=== PATIENT | male | born 1940 | race Caucasian/White ===

== ENCOUNTER 2017-06-24 11:11 | Inpatient (IN) ==
--- NOTE | 2017-06-24 12:06 | Emergency Department Note ---
Arrival - Arrival Chief Complaint: Upper Respiratory Stated Complaint: pne temp sob ED Nursing Triage Note: C/o productive cough, fever, runny nose-onset yesterday. Patient had one episode of vomiting yesterday morning. Reports highest temp 102. Also c/o blood tinged sputum yesterday. Denies symptoms at this time, states he is feeling fine now, instructed by Dr. Truong to come to the ER for evaluation of possible bronchitis vs pneumonia. Mode of Arrival: Ambulatory Time Seen by Provider: 06/24/17 11:38 - History of Present Illness HPI Narrative: 77-year-old white male, present, both gives history. Complains of cough for 1 month, runny nose and blood-tinged sputum that started on yesterday. Associated with fever 2 days ago at 102.2, vomiting. states that the patient ate Portuguese food on Wednesday and developed reflux, and vomiting the following day. Denies abdominal pain, diarrhea, shortness of breath, wheezing, weakness. Both are very concerned about blood-tinged sputum is patient history of CVA and is managed on Xarelto. Patient was seen by Dr. Tanner, PCP, today for above symptoms. states that patient had chest x-ray and CBC and was told to follow-up here in the emergency department as patient may have a pneumonia and he is anemic and may require "scope". However patient states "I feel perfectly fine." PCP: Dr. Truong PMH: Hypertension, hyperlipidemia, GERD, CVA Medications: Coronary, interested, Lasix, Lipitor, Nexium, Xarelto, Sudha Allergies: Ativan, codeine Allergies/Adverse Reactions: Allergies Allergy/AdvReac Type Severity Reaction Status Date / Time codeine Allergy Verified 02/08/17 07:09 lorazepam [From Ativan] Allergy Verified 02/08/17 07:09 Home Medications: Home Medications Medication Instructions Recorded Confirmed Type Fexofenadine/Pseudoephedrine 1 each PO DAILY 09/27/16 02/08/17 History [Sudha-D 24 Hour Tablet] Omeprazole 20 mg PO BID 09/27/16 02/08/17 History Atorvastatin [Lipitor] 80 mg PO BEDTIME #60 tablet 10/01/16 02/08/17 Rx Furosemide Tab [Lasix Tab] 40 mg PO DAILY 11/12/16 02/08/17 History Carvedilol [Coreg] 12.5 mg PO BID W/MEALS #60 tablet 02/09/17 Rx Sacubitril/Valsartan [Entresto 49 1 each PO BID 02/09/17 02/09/17 History mg-51 mg Tablet] cephALEXin [Keflex] 500 mg PO Q12HR #10 capsule 02/09/17 Rx oxyCODONE/ACETAMINOPHEN 5-325 1 tablet PO Q4H PRN #20 tablet 02/09/17 Rx [Percocet 5-325] Review of System - Review of System Constitutional: Present: as per HPI, fever (102.2 on yesterday) Head/Ears/Nose/Throat: Present: other (Rhinorrhea) Respiratory: Present: as per HPI, cough. Absent: respiratory distress, wheezing Cardiovascular: Absent: chest pain, palpitations Gastrointestinal: Present: nausea, vomiting. Absent: abdominal pain, diarrhea Genitourinary male: Absent: urgency, dysuria, frequency Skin: Absent: rash Medical,Surgical,& Family Hx - Medical History Cardio: History of: Hypertension Neurology: History of: Cerebrovascular Accident No history of: Seizures Genitourinary: History of: Prostate Problems Gastrointestinal: History of: GERD Musculoskeletal: History of: Back/Neck Problems - Surgical History Cardiac Surgeries: Sugical HX of: Cardiac Catheterization Abdominal Surgeries: Patient denies: Appendectomy, Cholecystectomy - Family History Family History: Reports;: Family Heart Disease - Social History Smoking Status: Former smoker Frequency of Alcohol Use: None Type of Drug Use: None Exam Physical Examination: - General General appearance: alert, in no apparent distress - Head Head exam: Present: atraumatic, normocephalic, normal inspection - Eye Eye exam: Present: normal appearance, - ENT ENT exam: Present: normal exam - Neck Neck exam: Present: normal inspection, full ROM. Absent: tenderness, lymphadenopathy - Chest Chest inspection: Present: symmetric chest wall rise - Respiratory Respiratory exam: Present: normal lung sounds bilaterally, dry cough heard on exam - Cardiovascular Cardiovascular exam: Present: regular rate, normal rhythm, normal heart sounds - Abdominal Exam Abdominal exam: Present: soft, normal bowel sounds. Absent: tenderness - Extremities Exam Extremities exam: Present: normal inspection, full ROM, normal capillary refill - Back Exam Back exam: Present: normal inspection. - Neurological Exam Neurological exam: Present: alert, oriented X3, normal gait, - Psychiatric Psychiatric exam: Present: normal affect, normal mood - Skin Skin exam: Present: warm, dry, intact Vital Signs: Vital Signs Temperature 98.4 F 06/24/17 11:14 Pulse Rate 90 06/24/17 13:43 Respiratory Rate 20 06/24/17 13:43 Blood Pressure 143/102 06/24/17 13:43 O2 Sat by Pulse Oximetry 96 06/24/17 13:43 Course - Reevaluation(s) Reevaluation #1: H&H 11.7& 35.6, PT 18.2, PTT 34.9, INR 1.7, large amount of blood in urine. Chest x-ray showed right upper lung density, we will give Rocephin 1 g IV. Patient is stable at present. Ankita, nurse practitioner, with hospitalist group consulted outpatient. Time: 12:45 Results - Labs CBC & BMP: 06/24/17 12:02 Lab Results: I have reviewed the patients labs Labs: Laboratory Tests 06/24/17 06/24/17 12:02 12:02 INR 1.7 PT Patient/Control Mix 18.2 D Circ Anticoag PTT 34.9 Urine Color Yellow Urine Appearance Clear Urine pH 6.0 Ur Specific [place] 1.005 Urine Protein Negative Urine Glucose (UA) Negative Urine Ketones Negative Urine Blood Moderate Urine Nitrate Negative Urine Bilirubin Negative Urine Urobilinogen 2.0 H Urine Leukocytes Trace Urine RBC 2 Urine WBC 3 Ur Squamous Epith Cells Occasional Urine Bacteria Occasional Ur Culture Indicated? Not indicated - Impressions Chest x-ray: Impression: Increased right upper lung density, could indicate pneumonia. - Diagnostic Findings Procedure: Chest x-ray: report reviewed by me Disposition Clinical Impression: Pneumonia, Hematuria Case discussed with: patient, patient's family Disposition: Still a Patient Condition: Stable
[2017-06-24 12:17] LABS: Basophils % 0.2 % (0.0-0.8); Eosinophils # 0.1 10*3/uL (0.0-0.87); Eosinophils % 0.5 % (0.00-10.9); Hematocrit 35.6 VOL% (42.0-52.0); Hemoglobin 11.7 GM/DL (14.0-18.0); Immature Granulocytes % 0.3 %; Immature Granulocytes Absolute 0.03 #; Lymphocytes # 1.8 10*3/uL (1.4-4.0); Lymphocytes % 16.2 % (21.2-54.2); Mean Corpuscular HGB Conc 32.9 GM/DL (32-36); Mean Corpuscular Hemoglobin 29 PG (27-34); Mean Platelet Volume 10.2 FL (9.6-12.0); Monocytes # 0.9 10*3/uL (0.11-0.8); Monocytes % 8.4 % (1.7-12.7); Neutrophils # 8.2 10*3/uL (1.4-7.4); Neutrophils % 74.4 % (38.7-73.9); Platelet Count 195 T/CUMM (130-400); Red Cell Distribution Width 17.2 % (9.3-17.3)
[2017-06-24 12:21] LABS: Apearance,Urine CLEAR (Clear); Bacteria,Urine Occasional /HPF (Few); Bilirubin,Urine Negative (Negative); Blood, Urine Moderate mg/dL (Negative); Glucose,Urine (UA) Negative (Negative); Ketones,Urine Negative (Negative); Nitrite,Urine Negative (Negative); Protein,Urine Negative; RBC,Urine 2 /HPF (0-4); Squamous Epithelial Cell,Urine Occasional /HPF (0-10); Urine Color Yellow (Yellow); Urine Specific Gravity 1.005 (1.001-1.035); WBC,Urine 3 /HPF (0-6)
--- NOTE | 2017-06-24 12:23 | XRay Report ---
XR chest 2V Indication: Cough, hemoptysis Comparison: 09 February 2017 Findings: The heart and mediastinum are stable in size and configuration. The pulmonary vascularity is normal in caliber. Pacemaker device is unchanged in position. There is increased right upper lung density not present on previous study. No other pulmonary infiltrates, effusions, pneumothorax or other abnormality is demonstrated. Impression: Increased right upper lung density, could indicate pneumonia. PROCEDURE INTERPRETED AT [facility] DEPARTMENT OF RADIOLOGY Final Report Signed by: Dr. Inocente Ramirez
[2017-06-24 12:29] LABS: INR 1.7; PT Patient Result 18.2 SECS; Partial Thromboplastin Time 34.9 SECS (0-40)
[2017-06-24] MEDS ORDERED: cefTRIAXone 1,000 MG in SODIUM CHLORIDE 0.9% 100 ML IV STA (14:03)
[2017-06-24] MEDS ORDERED: cefTRIAXone 1,000 MG VIAL ONE (14:05)
[2017-06-24] MEDS ORDERED: ALBUTEROL/IPRATROPIUM 3 ML NEB RESP TX PRN (15:09)
[2017-06-24] MEDS ORDERED: ONDANSETRON 4 MG/2 ML VIAL IV PRN (15:12)
[2017-06-24] MEDS ORDERED: DOCUSATE SODIUM 100 MG CAPSULE PO PRN (15:12)
[2017-06-24] MEDS ORDERED: ACETAMINOPHEN 325 MG TABLET PO PRN (15:12)
--- NOTE | 2017-06-24 15:36 | Hospitalist History & Physical ---
<Marycruz Cooney - Last Filed: 06/24/17 15:21> Assessment and Plan - Time spent with patient Time spent with patient: Greater than 30 minutes (1) Pneumonia Status: Acute Assessment and plan: 06/24/17 admit to hospital services. Will start antibiotics. Will consult Pulmonary. Will repeat a.m. labs. Will discuss with Dr Delgado for further recommendations. Current Visit: Yes (2) Hemoptysis Status: Acute Assessment and plan: 06/24/17 Reported 3-4 episodes yesterday of coughing up "bloody" thick sputum and another couple of episodes today. Patient is on xarelto s/p stroke in Aug 2016. Will repeat labs in a.m. will continue to monitor. will order sputum culture. Current Visit: Yes History of Present Illness Chief complaint: pneumonia, coughing up blood tinged sputum History of present illness: Mr. Gonzalez is a very pleasant 77 year old white male presented to [facility] non-urgent from Dr Truong's office for further evaluation of coughing up blood tinged sputum for past 2 days, chills, and fever. Patient is on Xarelto since stroke in August. PMHx: CVA (Aug 2016), Hypertension, GERD, Prostate issues. Patient verbalized elevated temperature of 102.2 yesterday with chil ls and vomited x1 without any bright or dark blood noted. Also, h e coughed up 3-4 times, thick sputum with blood in it. Patient reports this morning no fever, chills or vomiting but coughed up a couple of times thick blood tinged sputum. Denies shortness of breath or chest pain. Denies exertional shortness of breath or chest pain. Denies dark or bloody stools. Reports clear urine without any problems. PCP: Dr Truong. Electric Sign Assembler Dr Powell. Ambulates without assistance or difficulty. Lives at home with . After discussion with Janes Norwood in non-urgent ER and Dr Delgado with Hospitalist Services, it was agreed to admit patient for further evaluation and management. Home medications will be reviewed and reconciliation to follow. Home Medications Medication Instructions Recorded Confirmed Type Fexofenadine/Pseudoephedrine 1 each PO DAILY 09/27/16 02/08/17 History [Sudha-D 24 Hour Tablet] Omeprazole 20 mg PO BID 09/27/16 06/24/17 History Atorvastatin [Lipitor] 80 mg PO BEDTIME #60 tablet 10/01/16 02/08/17 Rx Furosemide Tab [Lasix Tab] 40 mg PO DAILY 11/12/16 06/24/17 History Carvedilol [Coreg] 12.5 mg PO BID W/MEALS #60 tablet 02/09/17 06/24/17 Rx Sacubitril/Valsartan [Entresto 49 1 each PO BID 02/09/17 06/24/17 History mg-51 mg Tablet] Rivaroxaban [Xarelto] 20 mg PO DAILY 06/24/17 06/24/17 History Allergies Allergy/AdvReac Type Severity Reaction Status Date / Time codeine Allergy Verified 02/08/17 07:09 lorazepam [From Ativan] Allergy Verified 02/08/17 07:09 Medical,Surgical,& Family Hx - Medical History Cardio: History of: Hypertension Neurology: History of: Cerebrovascular Accident (August 2016) No history of: Seizures Genitourinary: History of: Prostate Problems Gastrointestinal: History of: GERD Musculoskeletal: History of: Back/Neck Problems - Surgical History Cardiac Surgeries: Sugical HX of: Cardiac Catheterization Abdominal Surgeries: Patient denies: Appendectomy, Cholecystectomy - Family History Family History: Reports;: Family Heart Disease - Social History Smoking Status: Former smoker Frequency of Alcohol Use: None Type of Drug Use: None Marital Status: Lives With:: Spouse Functional capacity: independent ambulation Review of systems: ROS completed and pertinent positives and negatives in HPI. Exam - Constitutional Vitals: Period Temp Pulse Resp BP Sys/Mitchell Pulse Ox Last 24 Hr 98.4 F 77-90 18-20 143-156/96-102 96-97 General appearance: normal weight - Head Head exam: Present: normal inspection - Eye Eye exam: Present: EOMI Pupils: Present: PAVAN - Neck Neck exam: Present: normal inspection. Absent: thyromegaly - Respiratory Respiratory exam: Present: clear to auscultation bilaterally, other. Absent: wheezes - Cardiovascular Cardiovascular exam: Present: regular rate and rhythm (has defibrillator) - GI/Abdominal GI/Abdominal exam: Present: normal bowel sounds, soft. Absent: tenderness - Extremities Exam Extremities exam: Present: normal inspection, full ROM. Absent: edema - Neurological Exam Neurological exam: Present: alert, oriented X3, CN II-XII intact - Psychiatric Psychiatric exam: Present: normal affect, normal mood - Skin Skin exam: Present: normal color, warm, dry. Absent: rash Results - Labs CBC & BMP: 06/24/17 12:02 Lab Results: I have reviewed the past 24 hour labs - Diagnostic Findings Procedure: Chest x-ray: report reviewed by me (increased right upper lung density, could indicate pneumonia) <Carolyn Delgado - Last Filed: 06/24/17 16:34> History of Present Illness History of present illness: Patient seen and examined independently of GROUP CARE WORKER Cooney, agree with history, assessment and plan as documented. Patient with possible RUL pna on cxr. His reports increased cough with blood tinged sputum. Patient reports that he feels fine. There was concern for hemoptysis given that he is on xarelto, this does not seem to be the case. Pulmonary has been consulted. Will treat pneumonia with rocephin and azithromycin. Possible discharge tomorrow. Exam - Constitutional Vitals: Period Temp Pulse Resp BP Sys/Mitchell Pulse Ox Last 24 Hr 97.4 F-98.4 F 77-90 18-20 143-156/84-102 96-97 Results - Labs CBC & BMP: 06/24/17 12:02 06/24/17 12:02
[2017-06-24 16:09] LABS: Albumin 3.7 G/DL (3.4-5.0); Bilirubin,Total 1.4 MG/DL (0.2-1.0); Calcium 9.1 MG/DL (8.5-10.1); Osmolality,Calculated 278.4 MOS/KG (273-304); Potassium 3.6 MMOL/L (3.5-5.1)
[2017-06-24] MEDS ORDERED: ALUMINUM/MAGNES/SIMETH MAX STR 30 ML UDCUP PO PRN (16:37)
[2017-06-24] MEDS ORDERED: CALCIUM CARBONATE CHEW 500 MG TABLET PO PRN (16:37)
[2017-06-24] MEDS: cefTRIAXone 1,000 MG in SODIUM CHLORIDE 0.9% 100 ML IV SCH (16:42)
[2017-06-24] MEDS ORDERED: AZITHROMYCIN INJ 500 MG in SODIUM CHLORIDE 0.9% 250 ML IV SCH (17:00)
--- NOTE | 2017-06-24 17:34 | Pulmonology Consult Note ---
Assessment and Plan (1) Hypertension Status: Chronic Assessment and plan: The patient has a history of hypertension but is stable at present. Current Visit: No (2) Cardiomyopathy Status: Acute Assessment and plan: The patient has a cardiomyopathy and has a defibrillator in place. He does not look like he is in heart failure now. Current Visit: No (3) Pneumonia Status: Acute Assessment and plan: The patient does have a right upper lobe infiltrate. He will continue with antibiotics. Current Visit: Yes (4) Hemoptysis Status: Acute Assessment and plan: The hemoptysis is minor and he does have a right upper lobe infiltrate. If this does not clear he will need a bronchoscope. At present he appears stable. Current Visit: Yes History of Present Illness Chief complaint: Hemoptysis History of present illness: Mr. Gonzalez is a 77 year old white male that is followed by Dr. Truong has a history of having a previous CVA. He also has a cardiomyopathy and has a defibrillator in place. This is a nonischemic cardiomyopathy. He does have a history of hypertension. He has been doing reasonably well to the last couple days. He had some chills with nausea and vomited one time yesterday. Then he had a fever. He felt a little better and last night he is feeling better. He came in today to the office is and was found to have a right upper lobe infiltrate. He was admitted for possible pneumonia. He has had some blood- tinged sputum for the past 2 days. He is not complaining of shortness of breath or chest pain. He has not had any further chills. Overall he is feeling reasonably well. He does take anticoagulation. He is a former smoker. Home Medications Medication Instructions Recorded Confirmed Type Fexofenadine/Pseudoephedrine 1 tablet PO DAILY 09/27/16 06/24/17 History [Sudha-D 24 Hour Tablet] Omeprazole 20 mg PO BID 09/27/16 06/24/17 History Atorvastatin [Lipitor] 80 mg PO BEDTIME #60 tablet 10/01/16 06/24/17 Rx Furosemide Tab [Lasix Tab] 80 mg PO DAILY 11/12/16 06/24/17 History Carvedilol [Coreg] 12.5 mg PO BID W/MEALS #60 tablet 02/09/17 06/24/17 Rx Sacubitril/Valsartan [Entresto 49 1 each PO BID 02/09/17 06/24/17 History mg-51 mg Tablet] Rivaroxaban [Xarelto] 20 mg PO DAILY 06/24/17 06/24/17 History Allergies Allergy/AdvReac Type Severity Reaction Status Date / Time codeine Allergy Verified 02/08/17 07:09 lorazepam [From Ativan] Allergy Verified 02/08/17 07:09 - Constitutional Constitutional: Present: chills, fever(s). Absent: fatigue, weight gain, weight loss - EENT Eyes: Absent: loss of vision Ears: Absent: decreased hearing Nose, mouth and throat: Absent: dysphagia, headache(s), sinus pressure - Cardiovascular Cardiovascular: Absent: chest pain at rest, chest pain with activity, dyspnea, dyspnea on exertion, edema - Respiratory Respiratory: Present: cough, hemoptysis. Absent: wheezing, pain on inspiration - Gastrointestinal Gastrointestinal: Present: nausea, vomiting. Absent: abdominal pain, change in bowel habits, dysphagia - Genitourinary Genitourinary: Absent: difficulty urinating, dysuria, hematuria, urinary frequency - Musculoskeletal Musculoskeletal: Absent: arthralgias - Neurological Neurological: Present: abnormal speech. Absent: focal weakness Exam (Pulmonay) H&P - Constitutional Vitals: Period Temp Pulse Resp BP Sys/Mitchell Pulse Ox Last 24 Hr 97.4 F-98.4 F 77-90 18-20 143-156/84-102 96-97 General appearance: normal weight, no acute distress (He certainly looks comfortable at rest.) - Head Head exam: Present: normal inspection, normocephalic - Eye Eye exam: Present: EOMI. Absent: scleral icterus Pupils: Present: PAVAN - ENT ENT exam: Present: normal exam - Neck Neck exam: Present: normal inspection. Absent: lymphadenopathy, thyromegaly - Respiratory Respiratory exam: Present: clear to auscultation bilaterally. Absent: rales - Cardiovascular Cardiovascular exam: Present: regular rate and rhythm. Absent: gallop, systolic murmur - GI/Abdominal GI/Abdominal exam: Present: normal bowel sounds, soft. Absent: organomegaly, tenderness - Extremities Exam Extremities exam: Absent: calf tenderness, edema - Neurological Exam Neurological exam: Present: alert, oriented X3, CN II-XII intact, other (He does have a little trouble with his speech.) - Psychiatric Psychiatric exam: Present: normal affect, normal mood. Absent: anxious - Skin Skin exam: Present: warm, dry Medical,Surgical,& Family Hx - Medical History Cardio: History of: Hypertension Psychological: No history of: Anxiety Disorders, ADHD, Behavior Problems, Bipolar Disorder, Depression, Previous Suicide Attempt, Psychiatric/Substance Abuse Tx, Schizophrenia, Violent Behavior, Psychiatric Problems Neurology: History of: Cerebrovascular Accident (August 2016) No history of: Seizures Genitourinary: History of: Prostate Problems Gastrointestinal: History of: GERD Musculoskeletal: History of: Back/Neck Problems - Surgical History Cardiac Surgeries: Sugical HX of: Cardiac Catheterization Abdominal Surgeries: Patient denies: Appendectomy, Cholecystectomy - Family History Family History: Reports;: Family Heart Disease - Social History Smoking Status: Former smoker Frequency of Alcohol Use: None Type of Drug Use: None Results - Labs CBC & BMP: 06/24/17 12:02 06/24/17 12:02 - Diagnostic Findings Procedure: Chest x-ray: image reviewed by me, report reviewed by me (Chest x- ray shows cardiomegaly. There is a mild right upper lobe infiltrate that is new. There is no signs of heart failure.)
[2017-06-24] MEDS: PANTOPRAZOLE 40 MG TABLET PO SCH (17:43)
[2017-06-24] MEDS: SACUBITRIL/VALSARTAN 49-51 MG TABLET PO SCH (17:44)
[2017-06-24] MEDS: CARVEDILOL 12.5 MG TABLET PO SCH (18:07)
[2017-06-24] MEDS ORDERED: SACUBITRIL/VALSARTAN 49-51 MG TABLET PO SCH (21:00)
[2017-06-24] MEDS ORDERED: ATORVASTATIN 40 MG TABLET PO SCH (21:00)
[2017-06-25 05:05] LABS: Basophils % 0.2 % (0.0-0.8); Eosinophils # 0.1 10*3/uL (0.0-0.87); Hematocrit 30.6 VOL% (42.0-52.0); Hemoglobin 10.3 GM/DL (14.0-18.0); Immature Granulocytes % 0.5 %; Immature Granulocytes Absolute 0.04 #; Lymphocytes # 1.9 10*3/uL (1.4-4.0); Lymphocytes % 22.5 % (21.2-54.2); Mean Corpuscular HGB Conc 33.7 GM/DL (32-36); Mean Corpuscular Hemoglobin 29 PG (27-34); Mean Corpuscular Volume 87.2 FL (87-102); Mean Platelet Volume 10.6 FL (9.6-12.0); Monocytes % 12.2 % (1.7-12.7); Neutrophils # 5.2 10*3/uL (1.4-7.4); Neutrophils % 63.6 % (38.7-73.9); Platelet Count 177 T/CUMM (130-400); Red Blood Count 3.51 MC/CUMM (3.8-5.5); Red Cell Distribution Width 17.2 % (9.3-17.3); White Blood Count 8.2 T/CUMM (4-12)
[2017-06-25 05:42] LABS: Calcium 8.5 MG/DL (8.5-10.1); Magnesium 2.1 MG/DL (1.8-2.4); Osmolality,Calculated 283.1 MOS/KG (273-304); Potassium 3.5 MMOL/L (3.5-5.1)
[2017-06-25] MEDS: CARVEDILOL 12.5 MG TABLET PO SCH (08:05)
[2017-06-25] MEDS: PANTOPRAZOLE 40 MG TABLET PO SCH (08:06)
[2017-06-25] MEDS: SACUBITRIL/VALSARTAN 49-51 MG TABLET PO SCH (08:06)
[2017-06-25] MEDS: PSEUDOEPHEDRINE 30 MG TABLET PO SCH ×2 (08:09→14:14)
[2017-06-25] MEDS ORDERED: cefTRIAXone 1,000 MG in SODIUM CHLORIDE 0.9% 100 ML IV ONE (09:00)
[2017-06-25] MEDS ORDERED: CARVEDILOL 25 MG TABLET PO SCH (09:00)
[2017-06-25] MEDS ORDERED: FUROSEMIDE 40 MG TABLET PO SCH (09:00)
[2017-06-25] MEDS ORDERED: RIVAROXABAN 20 MG TABLET PO SCH (09:00)
[2017-06-25] MEDS ORDERED: PANTOPRAZOLE 40 MG TABLET PO SCH (09:00)
[2017-06-25] MEDS ORDERED: CARVEDILOL 12.5 MG TABLET PO ONE (09:00)
[2017-06-25] MEDS ORDERED: FEXOFENADINE 180 MG TABLET PO SCH (09:00)
--- NOTE | 2017-06-25 09:01 | Pulmonology Progress Note ---
Pulmonary - PN: Subj Interval history: The patient is a 77-year-old white man that has a history of a cardiomyopathy with a defibrillator in place. He has also had a previous CVA and is on Xarelto. He came in with some blood-tinged sputum and has a right upper lobe infiltrate. He had only 1 fever and chill and is better now. His cough is almost clear now. He is tolerating antibiotics well. He is not short of breath and not having any chest pain. Overall he feels better. Exam (Progress Note) - Constitutional Vitals: Period Temp Pulse Resp BP Sys/Mitchell Pulse Ox Last 24 Hr 97.4 F-99.1 F 66-90 16-20 118-156/68-102 93-97 Exam: General appearance: normal weight, no acute distress (He certainly looks comfortable at rest. He is in no distress.) - Head Head exam: Present: normal inspection, normocephalic - Eye Eye exam: Present: EOMI. Absent: scleral icterus Pupils: Present: PAVAN - ENT ENT exam: Present: normal exam - Neck Neck exam: Present: normal inspection. Absent: lymphadenopathy, thyromegaly - Respiratory Respiratory exam: Present: clear to auscultation bilaterally. He is moving air well without any signs of consolidation. Absent: rales - Cardiovascular Cardiovascular exam: Present: regular rate and rhythm. Absent: gallop, systolic murmur - GI/Abdominal GI/Abdominal exam: Present: normal bowel sounds, soft. Absent: organomegaly, tenderness - Extremities Exam Extremities exam: Absent: calf tenderness, edema - Neurological Exam Neurological exam: Present: alert, oriented X3, CN II-XII intact, other (He does have a little trouble with his speech.) - Psychiatric Psychiatric exam: Present: normal affect, normal mood. Absent: anxious - Skin Skin exam: Present: warm, dry Results - Labs CBC & BMP: 06/25/17 04:25 06/25/17 04:25 Assessment and Plan (1) Hypertension Status: Chronic Assessment and plan: The patient has a history of hypertension but is stable at present. Current Visit: No (2) Cardiomyopathy Status: Acute Assessment and plan: The patient has a cardiomyopathy and has a defibrillator in place. He does not look like he is in heart failure now. Vital signs are stable. Current Visit: No (3) Pneumonia Status: Acute Assessment and plan: The patient does have a right upper lobe infiltrate. He will continue with antibiotics. He can get his IV antibiotics today and then go home on oral antibiotics. We can check a chest x-ray in the office next week. He will hold Xarelto for a day or 2 until the hemoptysis clears. Current Visit: Yes (4) Hemoptysis Status: Acute Assessment and plan: The hemoptysis is minor and he does have a right upper lobe infiltrate. He can hold her Xarelto for a day or 2. He is already better and will follow up in the clinic. Current Visit: Yes Specialty Discharge - Follow Up or Referrals Follow up with: Jose Norwood MD [Physician] - (follow up either Wed or Wednesday of next week)
--- NOTE | 2017-06-25 09:40 | Discharge Summary ---
<Yrn Magallon - Last Filed: 06/25/17 09:33> Hospital Course - Hospital Course Hospital Course: This is a 77-year-old male that presented to the [facility]-Urgent[facility] at [facility] on the afternoon of June 24, 2017 for the evaluation of upper respiratory infection. The patient has a very long and complex medical history significant for hypertension, cerebrovascular accident, benign prostatic hypertrophy, gastroesophageal reflux disease, remote nicotine use, and chronic neck and back pain. The patient has a surgical history significant for cardiac catheterization. The patient reports the onset of the above symptoms 1 month prior to presentation. The patient reported that the symptoms initially started with excessive nasal drainage however, the patient was noted to develop some blood-tinged sputum on yesterday. In addition, his reported that the patient was also febrile 2 days prior to presentation with a temperature noted at 102.2. The reports that they ate [place] food on Wednesday and the patient developed reflux and started to vomit on the following day. They voiced concerns regarding the blood-tinged sputum because the patient is currently on Xarelto for coagulation. The patient and his presented to his primary care physician Dr. Cardona this morning for the above complaint. They report that the patient was evaluated and told to present to the ED for further evaluation. The patient was assessed at the time of arrival; labs were obtained which were essentially unremarkable. Chest x-ray reported increased right upper lobe density which could possibly indicate pneumonia. The patient was subsequently admitted to the hospitalist service for continuation of care. A pulmonary consultation was requested to evaluate and assist during the clinical encounter. [facility] antibiotic coverage was initiated and the patient's home medications were resumed. The patient's condition has improved. He has reached maximal benefit of inpatient stay. He has not experienced any significant overnight events. Today, we feel that the patient is indeed appropriate for discharge to follow-up with his primary care physician Dr. Cardona as indicated. He will see Dr. Norwood for a repeat CXR next week. In addition, has been instructed to start Levaquin 750 mg by mouth for the next 3 days. He has been instructed to stop his xarelto until 06/27/17. Specialty Discharge - Follow Up or Referrals Follow up with: Jose Norwood MD [Physician] - 06/28/17 10:30 am () Discharge Plan - Discharge Data Disposition: Disch To Home/Self Care - Discharge Medications New Carvedilol [Coreg] 25 mg PO BID tablet Levofloxacin Tab [Levaquin Tab] 750 mg PO DAILY #3 tablet Continue Omeprazole 20 mg PO BID Fexofenadine/Pseudoephedrine [Sudha-D 24 Hour Tablet] 1 tablet PO DAILY Atorvastatin [Lipitor] 80 mg PO BEDTIME #60 tablet Furosemide Tab [Lasix Tab] 80 mg PO DAILY Sacubitril/Valsartan [Entresto 49 mg-51 mg Tablet] 1 each PO BID Rivaroxaban [Xarelto] 20 mg PO DAILY Carvedilol [Coreg] 25 mg PO BID - Follow Up or Referral Follow Up: Jose Norwood MD [Physician] - 06/28/17 10:30 am () - Forms/Instructions Instructions: Levofloxacin (By mouth), Acute Hemoptysis (DC), Pneumonia (DC) Exam - Constitutional Vitals: Period Temp Pulse Resp BP Sys/Mitchell Pulse Ox Last 24 Hr 97.4 F-99.1 F 66-90 16-20 118-156/68-102 93-97 Discharge Results Procedures and tests throughout hospitalization: Pending Orders 06/24/17 14:17 Blood Culture Stat 06/24/17 20:54 Sputum Culture and Gram Stain Routine Labs on day of discharge: Labs from last 24 hours 06/25/17 06/25/17 06/25/17 04:25 04:25 04:25 WBC 8.2 RBC 3.51 L Hgb 10.3 L Hct 30.6 L MCV 87.2 MCH 29 MCHC 33.7 RDW 17.2 Plt Count 177 MPV 10.6 Neut % (Auto) 63.6 Lymph % (Auto) 22.5 [place] % (Auto) 12.2 Eos % (Auto) 1.0 Baso % (Auto) 0.2 Neut # (Auto) 5.2 Lymph # (Auto) 1.9 [place] # (Auto) 1.0 H Eos # (Auto) 0.1 Baso # (Auto) 0.0 Immature Gran % 0.5 Nucleated RBC % 0.0 Immature Gran # 0.04 Nucleated RBCs # 0.00 Immature Plt Fraction 0.0 INR PT Patient/Control Mix Circ Anticoag PTT Sodium 142 Potassium 3.5 Chloride 109 H Carbon Dioxide 25 Anion Gap 11.5 BUN 14 Creatinine 0.60 L GFR Calculation 111 BUN/Creatinine Ratio 23.00 H Glucose 99 Hemoglobin A1c 6.1 Calculated Osmolality 283.1 Calcium 8.5 Magnesium 2.1 Total Bilirubin AST ALT Alkaline Phosphatase Total Protein Albumin Globulin Albumin/Globulin Ratio Urine Color Urine Appearance Urine pH Ur Specific Henderson Urine Protein Urine Glucose (UA) Urine Ketones Urine Blood Urine Nitrate Urine Bilirubin Urine Urobilinogen Urine Leukocytes Urine RBC Urine WBC Ur Squamous Epith Cells Urine Bacteria Ur Culture Indicated? 06/24/17 06/24/17 06/24/17 12:02 12:02 12:02 WBC RBC Hgb Hct MCV MCH MCHC RDW Plt Count MPV Neut % (Auto) Lymph % (Auto) [place] % (Auto) Eos % (Auto) Baso % (Auto) Neut # (Auto) Lymph # (Auto) [place] # (Auto) Eos # (Auto) Baso # (Auto) Immature Gran % Nucleated RBC % Immature Gran # Nucleated RBCs # Immature Plt Fraction INR 1.7 PT Patient/Control Mix 18.2 D Circ Anticoag PTT 34.9 Sodium 140 Potassium 3.6 Chloride 104 Carbon Dioxide 27 Anion Gap 12.6 BUN 14 Creatinine 0.80 GFR Calculation 99 BUN/Creatinine Ratio 17.00 Glucose 79 Hemoglobin A1c Calculated Osmolality 278.4 Calcium 9.1 Magnesium Total Bilirubin 1.40 H AST 23 ALT 30 Alkaline Phosphatase 94 Total Protein 7.0 Albumin 3.7 Globulin 3.3 Albumin/Globulin Ratio 1.1 Urine Color Yellow Urine Appearance Clear Urine pH 6.0 Ur Specific [place] 1.005 Urine Protein Negative Urine Glucose (UA) Negative Urine Ketones Negative Urine Blood Moderate Urine Nitrate Negative Urine Bilirubin Negative Urine Urobilinogen 2.0 H Urine Leukocytes Trace Urine RBC 2 Urine WBC 3 Ur Squamous Epith Cells Occasional Urine Bacteria Occasional Ur Culture Indicated? Not indicated 06/24/17 12:02 WBC 11.0 RBC 4.00 Hgb 11.7 L Hct 35.6 L MCV 89.0 MCH 29 MCHC 32.9 RDW 17.2 Plt Count 195 MPV 10.2 Neut % (Auto) 74.4 H Lymph % (Auto) 16.2 L [place] % (Auto) 8.4 Eos % (Auto) 0.5 Baso % (Auto) 0.2 Neut # (Auto) 8.2 H Lymph # (Auto) 1.8 [place] # (Auto) 0.9 H Eos # (Auto) 0.1 Baso # (Auto) 0.0 Immature Gran % 0.3 Nucleated RBC % 0.0 Immature Gran # 0.03 Nucleated RBCs # 0.00 Immature Plt Fraction 0.0 L INR PT Patient/Control Mix Circ Anticoag PTT Sodium Potassium Chloride Carbon Dioxide Anion Gap BUN Creatinine GFR Calculation BUN/Creatinine Ratio Glucose Hemoglobin A1c Calculated Osmolality Calcium Magnesium Total Bilirubin AST ALT Alkaline Phosphatase Total Protein Albumin Globulin Albumin/Globulin Ratio Urine Color Urine Appearance Urine pH Ur Specific [place] Urine Protein Urine Glucose (UA) Urine Ketones Urine Blood Urine Nitrate Urine Bilirubin Urine Urobilinogen Urine Leukocytes Urine RBC Urine WBC Ur Squamous Epith Cells Urine Bacteria Ur Culture Indicated? Preliminary micro results at discharge 06/24/17 20:54 Sputum Culture - Preliminary Sputum No Growth at 12 hours. DS: Provider Date of admission: 06/24/17 13:59 Primary care physician: Arun Truong MD Attending physician on admission: Carolyn Delgado MD Consults: 06/24/17 15:11 Consult to Physician [CONS] Routine Comment: patient of Dr Truong,pneumonia, bld tinged sputum Consulting Provider: Jose Norwood When should Consulting Provider be notified: Now Consult to Specialist Group: Pulmonology Person Notified: [email or web address] Date Notified: 06/24/17 Time Notified: 16:34 Consult Notification Comment: coughing up blood tinged sputum several times x2-3 days, fever, chills on Xarelto since August after stroke Discharging clinician: Yrn Magallon CNP <Carolyn Delgado - Last Filed: 06/25/17 09:56> Hospital Course - Time spent with patient Time with patient DS: Less than 30 minutes (25) Diagnosis - Discharge Diagnosis (1) Pneumonia Status: Resolved Discharge Plan - Discharge Data Condition at Discharge: Stable Discharge Diet: heart healthy Activity: increase activity as tolerated Hygiene: no restrictions Weight Bearing at Discharge: weight bear as tolerated Exam - Constitutional General appearance: normal weight - Head Head exam: Present: normocephalic, atraumatic - Eye Eye exam: Present: EOMI Pupils: Present: PAVAN - ENT ENT exam: Present: normal exam - Neck Neck exam: Present: normal inspection - Respiratory Respiratory exam: Present: clear to auscultation bilaterally. Absent: wheezes - Cardiovascular Cardiovascular exam: Present: regular rate and rhythm - GI/Abdominal GI/Abdominal exam: Present: normal bowel sounds, soft. Absent: tenderness, rebound - Extremities Exam Extremities exam: Present: normal inspection - Back Exam Back exam: Present: normal inspection - Neurological Exam Neurological exam: Present: alert, oriented X3 - Psychiatric Psychiatric exam: Present: normal affect, normal mood - Skin Skin exam: Present: warm, intact
[2017-06-25] MEDS ORDERED: AZITHROMYCIN INJ 500 MG in SODIUM CHLORIDE 0.9% 250 ML IV ONE (10:00)
[2017-06-25 11:49] VITALS: BP 120/60
[2017-06-25] MEDS: cefTRIAXone 1,000 MG in SODIUM CHLORIDE 0.9% 100 ML IV SCH (15:03)
[2017-06-26] MEDS ORDERED: AZITHROMYCIN 250 MG TABLET PO SCH (09:00)
== END 2017-06-25 14:40 | disposition home or self-care (01) | DRG 194 ==
LOC: N.ED 11:11 → N.EDINP 13:59 → N.5E 16:03
PROVIDERS: ADMIT Internal Medicine; ATTEND Internal Medicine

== ENCOUNTER 2021-04-19 00:23 | Inpatient (IN) ==
[2021-04-19] MEDS ORDERED: SODIUM CHLORIDE 0.9% 1,000 ML IV STA (00:55)
[2021-04-19] MEDS ORDERED: cefTRIAXone 1,000 MG in SODIUM CHLORIDE 0.9% 100 ML IV STA (00:55)
[2021-04-19 01:41] LABS: Basophils % 0.1 % (0.0-0.8); Eosinophils % 0.1 % (0.00-10.9); Hematocrit 36.6 VOL% (42.0-52.0); Immature Granulocytes % 0.4 %; Immature Granulocytes Absolute 0.07 #; Lymphocytes # 0.6 10*3/uL (1.4-4.0); Lymphocytes % 3.7 % (21.2-54.2); Mean Corpuscular HGB Conc 32.8 GM/DL (32-36); Mean Corpuscular Volume 98.7 FL (87-102); Mean Platelet Volume 10.1 FL (9.6-12.0); Monocytes % 3.7 % (1.7-12.7); Platelet Count 154 T/CUMM (130-400); Red Blood Count 3.71 MC/CUMM (3.8-5.5); White Blood Count 15.9 T/CUMM (4-12)
[2021-04-19] MEDS ORDERED: ACETAMINOPHEN 500 MG TABLET PO STA (01:47)
[2021-04-19] MEDS ORDERED: ACETAMINOPHEN 500 MG TABLET ONE (01:49)
[2021-04-19 01:58] LABS: Blood, Urine Small mg/dL (Negative); Glucose,Urine (UA) Negative (Negative); Ketones,Urine 5 mg/dL (Negative); Mucus,Urine Occasional /LPF (Occasional); Nitrite,Urine Negative (Negative); Protein,Urine 30 MG/DL; RBC,Urine 13 /HPF (0-4); Squamous Epithelial Cell,Urine Occasional /HPF (0-10); Urine Appearance CLEAR (Clear); Urine Color Amber (Yellow); Urine Specific Gravity 1.015 (1.001-1.035)
[2021-04-19 02:20] LABS: Bilirubin,Urine Moderate mg/dL (Negative)
[2021-04-19] MEDS ORDERED: DILTIAZEM 50 MG/10 ML VIAL IV STA (02:23)
[2021-04-19 02:24] LABS: Albumin 3.2 G/DL (3.4-5.0); Calcium 8.3 MG/DL (8.5-10.1); Potassium 3.5 MMOL/L (3.5-5.1); Total Protein 5.8 G/DL (6.4-8.2)
[2021-04-19 02:42] LABS: INR 1.7; PT Patient Result 18.9 SECS (10.5-12.0); Partial Thromboplastin Time 30.2 SECS (23.9-33.8)
[2021-04-19 03:30] LABS: Band Neutrophils 1 % (0-10); Lymphocytes 4 % (20-55); Platelet Estimate Adequate; Segmented Neutrophils 93 % (50-85); Total Cells Counted 100
[2021-04-19] MEDS ORDERED: PIPERACILLIN/TAZOBACTAM 3,375 MG in SODIUM CHLORIDE 0.9% 100 ML IV STA (05:09)
[2021-04-19] MEDS ORDERED: PIPERACILLIN/TAZOBACTAM 3,375 MG VIAL IV ONE (06:41)
[2021-04-19] MEDS ORDERED: DOCUSATE SODIUM 100 MG CAPSULE PO PRN (07:01)
[2021-04-19] MEDS ORDERED: DEXTROSE 50% 25 GM/50 ML VIAL IV PRN (07:01)
[2021-04-19] MEDS ORDERED: ONDANSETRON 4 MG/2 ML VIAL IV PRN (07:01)
[2021-04-19] MEDS ORDERED: MORPHINE 4 MG/1 ML VIAL IV PRN (07:01)
[2021-04-19] MEDS ORDERED: GLUCAGON 1 MG VIAL IM PRN (07:01)
[2021-04-19] MEDS: PANTOPRAZOLE 40 MG VIAL IV SCH ×2 (11:19→20:40)
[2021-04-19] MEDS: SODIUM CHLORIDE 0.9% 1,000 ML IV SCH (11:24)
[2021-04-19] MEDS: ENOXAPARIN 40 MG/0.4 ML SYRINGE SUBCUT SCH (15:20)
[2021-04-19] MEDS: carvediloL 6.25 MG TABLET PO SCH (17:43)
[2021-04-19] MEDS: TAMSULOSIN 0.4 MG CAPSULE PO SCH (20:40)
[2021-04-19] MEDS: SACUBITRIL/VALSARTAN 49-51 MG TABLET PO SCH (20:42)
[2021-04-20] MEDS: cefTRIAXone 2,000 MG in SODIUM CHLORIDE 0.9% 100 ML IV SCH (01:08)
[2021-04-20 05:27] LABS: Basophils % 0.2 % (0.0-0.8); Hematocrit 32.4 VOL% (42.0-52.0); Hemoglobin 11.2 GM/DL (14.0-18.0); Immature Granulocytes % 0.6 %; Immature Granulocytes Absolute 0.08 #; Lymphocytes # 0.8 10*3/uL (1.4-4.0); Lymphocytes % 6.3 % (21.2-54.2); Mean Corpuscular HGB Conc 34.6 GM/DL (32-36); Mean Corpuscular Volume 95.6 FL (87-102); Mean Platelet Volume 10.6 FL (9.6-12.0); Monocytes % 5.5 % (1.7-12.7); Neutrophils % 87.4 % (38.7-73.9); Platelet Count 126 T/CUMM (130-400); Red Blood Count 3.39 MC/CUMM (3.8-5.5); Red Cell Distribution Width 13.9 % (9.3-17.3); White Blood Count 12.6 T/CUMM (4-12)
[2021-04-20 05:39] LABS: INR 1.4; PT Patient Result 15.2 SECS (10.5-12.0); Partial Thromboplastin Time 30.9 SECS (23.9-33.8)
[2021-04-20 06:08] LABS: Albumin 2.6 G/DL (3.4-5.0); Bilirubin,Total 6.3 MG/DL (0.2-1.0); Calcium 8.4 MG/DL (8.5-10.1); Osmolality,Calculated 268.1 MOS/KG (273-304); Total Protein 5.9 G/DL (6.4-8.2)
[2021-04-20 06:12] LABS: Microcytosis 1+; Ovalocytes Slight; Platelet Estimate Adequate
[2021-04-20] MEDS ORDERED: MAGNESIUM SULF RIDER 2 GM/50 ML PREMIX IV ONE (08:30)
[2021-04-20] MEDS ORDERED: ATORVASTATIN 10 MG TABLET PO SCH (09:00)
[2021-04-20] MEDS: CETIRIZINE 10 MG TABLET PO SCH (10:40)
[2021-04-20] MEDS: TAMSULOSIN 0.4 MG CAPSULE PO SCH ×2 (10:40→21:17)
[2021-04-20] MEDS: SACUBITRIL/VALSARTAN 49-51 MG TABLET PO SCH ×2 (10:40→21:17)
[2021-04-20] MEDS: FERROUS SULFATE 325 MG TABLET PO SCH (10:40)
[2021-04-20] MEDS: FINASTERIDE 5 MG TABLET PO SCH (10:41)
[2021-04-20] MEDS: carvediloL 6.25 MG TABLET PO SCH ×2 (10:41→17:22)
[2021-04-20] MEDS: PANTOPRAZOLE 40 MG VIAL IV SCH ×2 (10:41→21:17)
[2021-04-20] MEDS: POTASSIUM CHLORIDE 20 MEQ TABLET PO PRN ×2 (10:46→12:15)
[2021-04-20] MEDS: ENOXAPARIN 40 MG/0.4 ML SYRINGE SUBCUT SCH (15:21)
[2021-04-20] MEDS: POTASSIUM CHLORIDE RIDER 10 MEQ/100 ML PREMIX IV PRN ×4 (17:22→23:50)
[2021-04-21] MEDS: POTASSIUM CHLORIDE RIDER 10 MEQ/100 ML PREMIX IV PRN ×3 (00:53→11:11)
[2021-04-21] MEDS: cefTRIAXone 2,000 MG in SODIUM CHLORIDE 0.9% 100 ML IV SCH (01:56)
[2021-04-21 04:55] LABS: Basophils % 0.1 % (0.0-0.8); Hematocrit 33.7 VOL% (42.0-52.0); Hemoglobin 12.1 GM/DL (14.0-18.0); Immature Granulocytes % 1.3 %; Lymphocytes # 0.7 10*3/uL (1.4-4.0); Lymphocytes % 4.4 % (21.2-54.2); Mean Corpuscular HGB Conc 35.9 GM/DL (32-36); Mean Corpuscular Volume 94.1 FL (87-102); Mean Platelet Volume 10.7 FL (9.6-12.0); Monocytes % 4.4 % (1.7-12.7); Neutrophils % 89.8 % (38.7-73.9); Platelet Count 129 T/CUMM (130-400); Red Blood Count 3.58 MC/CUMM (3.8-5.5); Red Cell Distribution Width 13.8 % (9.3-17.3); White Blood Count 15.6 T/CUMM (4-12)
[2021-04-21 05:17] LABS: Albumin 2.3 G/DL (3.4-5.0); Bilirubin,Total 9.2 MG/DL (0.2-1.0); Calcium 8.2 MG/DL (8.5-10.1); Osmolality,Calculated 265.2 MOS/KG (273-304); Potassium 3.8 MMOL/L (3.5-5.1); Total Protein 5.7 G/DL (6.4-8.2)
[2021-04-21 05:20] LABS: Lymphocytes 6 % (20-55); Segmented Neutrophils 92 % (50-85); Total Cells Counted 100
[2021-04-21] MEDS: SACUBITRIL/VALSARTAN 49-51 MG TABLET PO SCH ×2 (09:09→20:58)
[2021-04-21] MEDS: carvediloL 6.25 MG TABLET PO SCH ×2 (09:09→16:58)
[2021-04-21] MEDS: SODIUM CHLORIDE 0.9% 1,000 ML IV SCH ×3 (09:10→23:05)
[2021-04-21] MEDS: PANTOPRAZOLE 40 MG VIAL IV SCH ×2 (09:14→20:59)
[2021-04-21] MEDS ORDERED: LACTATED RINGERS 1,000 ML IV ONE (09:50)
[2021-04-21] MEDS: TAMSULOSIN 0.4 MG CAPSULE PO SCH ×2 (11:11→20:56)
[2021-04-21] MEDS: FUROSEMIDE 40 MG TABLET PO SCH (11:11)
[2021-04-21] MEDS: FINASTERIDE 5 MG TABLET PO SCH (11:11)
[2021-04-21] MEDS: CETIRIZINE 10 MG TABLET PO SCH (11:31)
[2021-04-21] MEDS: FERROUS SULFATE 325 MG TABLET PO SCH (11:31)
[2021-04-21] MEDS ORDERED: LIDOCAINE 2% 5 ML VIAL ONE (13:40)
[2021-04-21] MEDS ORDERED: ROCURONIUM 50 MG/5 ML VIAL IV ONE (13:40)
[2021-04-21] MEDS ORDERED: SUCCINYLCHOLINE 200 MG/10 ML VIAL ONE (13:40)
[2021-04-21] MEDS ORDERED: propofoL 200 MG/20 ML VIAL IV ONE (13:40)
[2021-04-21] MEDS ORDERED: fentaNYL 100 MCG/2 ML VIAL ONE (13:41)
[2021-04-21] MEDS ORDERED: INDOMETHACIN SUPP 50 MG SUPP RECTAL ONE (13:42)
[2021-04-21] MEDS: LACTATED RINGERS 1,000 ML IV SCH ×2 (13:45→14:33)
[2021-04-21] MEDS ORDERED: ALBUMIN 5% 12.5 GM/250 ML VIAL IV ONE ×2 (13:46→14:01)
[2021-04-21] MEDS ORDERED: PHENYLEPHRINE 1 MG/10 ML SYRINGE IV ONE (14:11)
[2021-04-21] MEDS ORDERED: ePHEDrine 50 MG/ML VIAL ONE (14:19)
[2021-04-21] MEDS ORDERED: SEVOFLURANE 1 UNIT/15 MINUTE INH ONE (14:40)
[2021-04-21] MEDS: ENOXAPARIN 40 MG/0.4 ML SYRINGE SUBCUT SCH (16:58)
[2021-04-21] MEDS: ACETYLCYSTEINE 600 MG CAPSULE PO SCH (20:56)
[2021-04-22] MEDS: cefTRIAXone 2,000 MG in SODIUM CHLORIDE 0.9% 100 ML IV SCH (01:20)
[2021-04-22 06:26] LABS: Basophils % 0.1 % (0.0-0.8); Eosinophils % 0.3 % (0.00-10.9); Hematocrit 30.4 VOL% (42.0-52.0); Hemoglobin 10.6 GM/DL (14.0-18.0); Immature Granulocytes % 0.5 %; Immature Granulocytes Absolute 0.05 #; Lymphocytes % 10.2 % (21.2-54.2); Mean Corpuscular HGB Conc 34.9 GM/DL (32-36); Mean Corpuscular Volume 94.7 FL (87-102); Mean Platelet Volume 11.2 FL (9.6-12.0); Monocytes % 6.4 % (1.7-12.7); Neutrophils % 82.5 % (38.7-73.9); Platelet Count 137 T/CUMM (130-400); Red Blood Count 3.21 MC/CUMM (3.8-5.5); Red Cell Distribution Width 13.7 % (9.3-17.3); White Blood Count 10.1 T/CUMM (4-12)
[2021-04-22 06:36] LABS: Calcium 8.2 MG/DL (8.5-10.1); Osmolality,Calculated 272.8 MOS/KG (273-304); Potassium 3.2 MMOL/L (3.5-5.1)
[2021-04-22 06:40] LABS: Albumin 2.2 G/DL (3.4-5.0); Bilirubin,Total 4.8 MG/DL (0.2-1.0); Calcium 8.2 MG/DL (8.5-10.1); Potassium 3.2 MMOL/L (3.5-5.1); Total Protein 5.2 G/DL (6.4-8.2)
[2021-04-22 06:47] LABS: Hypochromasia 1+; Microcytosis 1+; Ovalocytes Slight
[2021-04-22 06:48] LABS: Platelet Estimate Adequate
[2021-04-22] MEDS ORDERED: POTASSIUM CHLORIDE 20 MEQ TABLET PO ONE (07:45)
[2021-04-22] MEDS ORDERED: INDOCYANINE GREEN 25 MG VIAL IV ONE (08:39)
[2021-04-22] MEDS: carvediloL 6.25 MG TABLET PO SCH ×2 (08:41→17:14)
[2021-04-22] MEDS: PANTOPRAZOLE 40 MG VIAL IV SCH ×2 (09:19→21:22)
[2021-04-22] MEDS ORDERED: SODIUM CHLORIDE 0.9% 1,000 ML IV SCH (09:30)
[2021-04-22] MEDS ORDERED: ONDANSETRON 4 MG/2 ML VIAL ONE (09:36)
[2021-04-22] MEDS ORDERED: propofoL 200 MG/20 ML VIAL IV ONE (09:36)
[2021-04-22] MEDS ORDERED: ROCURONIUM 50 MG/5 ML VIAL IV ONE (09:36)
[2021-04-22] MEDS ORDERED: LIDOCAINE 2% 5 ML VIAL ONE (09:36)
[2021-04-22] MEDS ORDERED: fentaNYL 100 MCG/2 ML VIAL ONE (09:36)
[2021-04-22] MEDS ORDERED: SEVOFLURANE 1 UNIT/15 MINUTE INH ONE ×5 (09:36→12:06)
[2021-04-22] MEDS ORDERED: DEXAMETHASONE 4 MG/1 ML VIAL ONE (09:36)
[2021-04-22] MEDS ORDERED: TISSUE ADHESIVE 1 EACH APPLICATOR TOP ONE (09:59)
[2021-04-22] MEDS ORDERED: LIDOCAINE 1%/EPI INJ 20 ML VIAL ONE (09:59)
[2021-04-22] MEDS ORDERED: BUPIVACAINE MPF 0.25% 30 ML VIAL ONE (09:59)
[2021-04-22] MEDS: TAMSULOSIN 0.4 MG CAPSULE PO SCH ×2 (10:13→21:17)
[2021-04-22] MEDS: FINASTERIDE 5 MG TABLET PO SCH (10:13)
[2021-04-22] MEDS ORDERED: PHENYLEPHRINE 10 MG/1 ML VIAL IV ONE (11:27)
[2021-04-22] MEDS ORDERED: SODIUM CHLORIDE 0.9% 100 ML IV ONE (11:39)
[2021-04-22] MEDS ORDERED: ETOMIDATE 40 MG/20 ML VIAL IV ONE (11:39)
[2021-04-22] MEDS ORDERED: GLYCOPYRROLATE 0.4 MG/2 ML VIAL ONE (12:03)
[2021-04-22] MEDS ORDERED: oxyCODONE/ACETAMINOPHEN 5-325 MG TABLET PO PRN (15:38)
[2021-04-22] MEDS ORDERED: ALBUTEROL/IPRATROPIUM 3 ML NEB RESP TX PRN (15:38)
[2021-04-22] MEDS: FERROUS SULFATE 325 MG TABLET PO SCH (15:45)
[2021-04-22] MEDS: FUROSEMIDE 40 MG TABLET PO SCH (15:46)
[2021-04-22] MEDS: CETIRIZINE 10 MG TABLET PO SCH (15:47)
[2021-04-22] MEDS: ACETYLCYSTEINE 600 MG CAPSULE PO SCH ×2 (15:48→21:18)
[2021-04-22] MEDS: SACUBITRIL/VALSARTAN 49-51 MG TABLET PO SCH ×2 (15:51→21:17)
[2021-04-22] MEDS: LACTATED RINGERS 1,000 ML IV SCH (16:16)
[2021-04-22] MEDS: ACETAMINOPHEN 325 MG TABLET PO PRN (17:30)
[2021-04-22] MEDS: SODIUM CHLORIDE 0.9% 1,000 ML IV SCH (18:16)
[2021-04-22] MEDS: POTASSIUM CHLORIDE RIDER 10 MEQ/100 ML PREMIX IV PRN (18:17)
[2021-04-23] MEDS: ACETAMINOPHEN 325 MG TABLET PO PRN (00:29)
[2021-04-23] MEDS: cefTRIAXone 2,000 MG in SODIUM CHLORIDE 0.9% 100 ML IV SCH (00:30)
[2021-04-23 05:22] LABS: Basophils % 0.2 % (0.0-0.8); Eosinophils % 0.2 % (0.00-10.9); Hematocrit 29.4 VOL% (42.0-52.0); Hemoglobin 10.3 GM/DL (14.0-18.0); Immature Granulocytes % 0.9 %; Lymphocytes # 1.3 10*3/uL (1.4-4.0); Lymphocytes % 11.1 % (21.2-54.2); Mean Corpuscular Volume 94.2 FL (87-102); Mean Platelet Volume 10.4 FL (9.6-12.0); Neutrophils % 81.6 % (38.7-73.9); Platelet Count 164 T/CUMM (130-400); Red Blood Count 3.12 MC/CUMM (3.8-5.5); Red Cell Distribution Width 14.1 % (9.3-17.3); White Blood Count 11.5 T/CUMM (4-12)
[2021-04-23 05:42] LABS: Hypochromasia Slight; Lymphocytes 7 % (20-55); Microcytosis Slight; Platelet Estimate Adequate; Segmented Neutrophils 88 % (50-85); Total Cells Counted 100
[2021-04-23 05:53] LABS: Albumin 2.1 G/DL (3.4-5.0); Calcium 7.8 MG/DL (8.5-10.1); Osmolality,Calculated 274.7 MOS/KG (273-304); Potassium 3.4 MMOL/L (3.5-5.1); Total Protein 5.1 G/DL (6.4-8.2)
[2021-04-23] MEDS ORDERED: POTASSIUM CHLORIDE 20 MEQ TABLET PO SCH (09:30)
[2021-04-23] MEDS: ACETYLCYSTEINE 600 MG CAPSULE PO SCH (10:02)
[2021-04-23] MEDS: CETIRIZINE 10 MG TABLET PO SCH (10:02)
[2021-04-23] MEDS: PANTOPRAZOLE 40 MG VIAL IV SCH (10:02)
[2021-04-23] MEDS: TAMSULOSIN 0.4 MG CAPSULE PO SCH (10:02)
[2021-04-23] MEDS: SACUBITRIL/VALSARTAN 49-51 MG TABLET PO SCH (10:02)
[2021-04-23] MEDS: carvediloL 6.25 MG TABLET PO SCH (10:02)
[2021-04-23] MEDS: FUROSEMIDE 40 MG TABLET PO SCH (10:02)
[2021-04-23] MEDS: FINASTERIDE 5 MG TABLET PO SCH (10:03)
[2021-04-23] MEDS: FERROUS SULFATE 325 MG TABLET PO SCH (10:07)
[2021-04-23] MEDS ORDERED: HYDROCORTISONE 1% CREAM 28 GM TUBE TOP PRN (14:48)
[2021-04-23] MEDS ORDERED: cephALEXin 500 MG CAPSULE PO SCH (17:00)
[2021-04-23 18:05] VITALS: BP 161/82
[2021-04-24] MEDS ORDERED: RIVAROXABAN 20 MG TABLET PO SCH (09:00)
== END 2021-04-23 17:43 | disposition home or self-care (01) | DRG 418 ==
LOC: SUATTDRO → EDUNIT# → EDBD → N.ED 00:23 → SUATTDRO 06:08 → N.EDINP 06:08 → N.3E 09:50
PROVIDERS: ADMIT Internal Medicine; ATTEND Hospitalist
PROC: ERCPWSP (ICD-10-PCS; 2021-04-21 13:20)

== ENCOUNTER 2021-12-27 19:33 | Inpatient (IN) ==
[2021-12-27 20:31] LABS: Basophils % 0.1 % (0.0-0.8); Eosinophils % 0.1 % (0.00-10.9); Hematocrit 35.2 VOL% (42.0-52.0); Hemoglobin 11.6 GM/DL (14.0-18.0); Immature Granulocytes % 0.2 %; Immature Granulocytes Absolute 0.02 #; Lymphocytes # 1.4 10*3/uL (1.4-4.0); Lymphocytes % 16.8 % (21.2-54.2); Mean Corpuscular Volume 99.4 FL (87-102); Monocytes % 5.6 % (1.7-12.7); Neutrophils % 77.2 % (38.7-73.9); Platelet Count 144 T/CUMM (130-400); Red Blood Count 3.54 MC/CUMM (3.8-5.5); Red Cell Distribution Width 13.5 % (9.3-17.3); White Blood Count 8.1 T/CUMM (4-12)
[2021-12-27 20:50] LABS: Albumin 2.8 G/DL (3.4-5.0); Bilirubin,Total 0.5 MG/DL (0.20-1.00); Calcium 8.4 MG/DL (8.5-10.1); Potassium 3.3 MMOL/L (3.5-5.1); Total Protein 6.6 G/DL (6.4-8.2)
[2021-12-27 21:31] LABS: Bilirubin,Urine Negative (Negative); Blood, Urine Small mg/dL (Negative); Glucose,Urine (UA) Negative (Negative); Ketones,Urine Negative (Negative); Mucus,Urine Few /LPF (Occasional); Nitrite,Urine Negative (Negative); Protein,Urine 30 MG/DL; RBC,Urine 23 /HPF (0-4); Squamous Epithelial Cell,Urine Occasional /HPF (0-10); Urine Appearance CLEAR (Clear); Urine Color Yellow (Yellow)
[2021-12-27 21:57] LABS: Lymphocytes 10 % (20-55); Platelet Estimate Normal; Segmented Neutrophils 86 % (50-85); Total Cells Counted 100
[2021-12-27 21:59] LABS: Ovalocytes Slight
[2021-12-28] MEDS ORDERED: ZALEPLON 5 MG CAPSULE PO PRN (13:47)
[2021-12-28] MEDS ORDERED: guaiFENesin/DM ER 600-30 MG TABLET PO PRN (13:47)
[2021-12-28] MEDS ORDERED: ONDANSETRON 4 MG/2 ML VIAL IV PRN (13:47)
[2021-12-28] MEDS ORDERED: hydrALAZINE 20 MG/1 ML VIAL IV PRN (13:47)
[2021-12-28] MEDS ORDERED: ACETAMINOPHEN 325 MG TABLET PO PRN (13:47)
[2021-12-28] MEDS ORDERED: GLUCAGON 1 MG VIAL IM PRN (13:47)
[2021-12-28] MEDS ORDERED: DEXTROSE 10% 25 GM/250 ML BAG IV PRN (13:58)
[2021-12-28] MEDS ORDERED: ENOXAPARIN 30 MG/0.3 ML SYRINGE SUBCUT SCH (14:00)
[2021-12-28] MEDS ORDERED: POTASSIUM CHLORIDE 20 MEQ TABLET PO STA (14:02)
[2021-12-28] MEDS: cefTRIAXone 1,000 MG in SODIUM CHLORIDE 0.9% 100 ML IV SCH (14:55)
[2021-12-28] MEDS ORDERED: REMDESIVIR 200 MG in SODIUM CHLORIDE 0.9% 210 ML IV ONE (16:00)
[2021-12-28] MEDS: AZITHROMYCIN INJ 500 MG in SODIUM CHLORIDE 0.9% 250 ML IV SCH (16:50)
[2021-12-28] MEDS ORDERED: ALBUTEROL 2.5 MG/3 ML NEB RESP TX SCH (19:00)
[2021-12-28] MEDS ORDERED: TAMSULOSIN 0.4 MG CAPSULE PO SCH (21:00)
[2021-12-28] MEDS: ATORVASTATIN 10 MG TABLET PO SCH (21:30)
[2021-12-28] MEDS: carvediloL 12.5 MG TABLET PO SCH (21:30)
[2021-12-28] MEDS: ALBUTEROL INHALER 18 GM INH SCH (21:35)
[2021-12-29] MEDS: ALBUTEROL INHALER 18 GM INH SCH ×4 (01:56→21:18)
[2021-12-29 06:59] LABS: Basophils % 0.1 % (0.0-0.8); Eosinophils % 0.1 % (0.00-10.9); Hematocrit 31.4 VOL% (42.0-52.0); Hemoglobin 10.4 GM/DL (14.0-18.0); Immature Granulocytes % 0.4 %; Immature Granulocytes Absolute 0.03 #; Lymphocytes % 14.3 % (21.2-54.2); Mean Corpuscular HGB Conc 33.1 GM/DL (32-36); Mean Corpuscular Volume 99.7 FL (87-102); Mean Platelet Volume 10.4 FL (9.6-12.0); Monocytes % 4.1 % (1.7-12.7); Platelet Count 141 T/CUMM (130-400); Red Blood Count 3.15 MC/CUMM (3.8-5.5); Red Cell Distribution Width 13.6 % (9.3-17.3); White Blood Count 6.9 T/CUMM (4-12)
[2021-12-29 07:25] LABS: Albumin 2.3 G/DL (3.4-5.0); Bilirubin,Total 1.9 MG/DL (0.20-1.00); Calcium 8.1 MG/DL (8.5-10.1); Osmolality,Calculated 279.4 MOS/KG (273-304); Potassium 3.2 MMOL/L (3.5-5.1); Risk Ratio 2.77; Thyroid Stimulating Hormone 0.886 uIU/ml (0.358-3.74); Total Protein 5.9 G/DL (6.4-8.2); VLDL Cholesterol 8.6 MG/DL
[2021-12-29] MEDS ORDERED: POTASSIUM CHLORIDE 20 MEQ TABLET PO ONE (08:30)
[2021-12-29] MEDS ORDERED: REMDESIVIR 100 MG in SODIUM CHLORIDE 0.9% 100 ML IV SCH (09:00)
[2021-12-29] MEDS: CETIRIZINE 10 MG TABLET PO SCH (09:12)
[2021-12-29] MEDS: carvediloL 12.5 MG TABLET PO SCH ×2 (09:12→20:44)
[2021-12-29] MEDS: FUROSEMIDE 40 MG TABLET PO SCH (09:12)
[2021-12-29] MEDS: FINASTERIDE 5 MG TABLET PO SCH (09:12)
[2021-12-29] MEDS: DOCUSATE SODIUM 100 MG CAPSULE PO SCH (09:13)
[2021-12-29] MEDS: RIVAROXABAN 20 MG TABLET PO SCH (09:13)
[2021-12-29] MEDS: ZINC SULFATE 220 MG CAPSULE PO SCH (09:13)
[2021-12-29] MEDS: FERROUS SULFATE 325 MG TABLET PO SCH (09:13)
[2021-12-29] MEDS: DEXAMETHASONE 10 MG/1 ML VIAL IV SCH (09:16)
[2021-12-29] MEDS: cefTRIAXone 1,000 MG in SODIUM CHLORIDE 0.9% 100 ML IV SCH (10:48)
[2021-12-29] MEDS: PANTOPRAZOLE 40 MG TABLET PO SCH (12:36)
[2021-12-29] MEDS: AZITHROMYCIN INJ 500 MG in SODIUM CHLORIDE 0.9% 250 ML IV SCH (13:16)
[2021-12-29] MEDS: SACUBITRIL/VALSARTAN 49-51 MG TABLET PO SCH (20:43)
[2021-12-29] MEDS: ATORVASTATIN 10 MG TABLET PO SCH (20:44)
[2021-12-30] MEDS: ALBUTEROL INHALER 18 GM INH SCH ×3 (01:13→13:45)
[2021-12-30 05:41] LABS: Hemoglobin 11.6 GM/DL (14.0-18.0); Immature Granulocytes % 0.2 %; Immature Granulocytes Absolute 0.02 #; Lymphocytes # 0.8 10*3/uL (1.4-4.0); Lymphocytes % 9.1 % (21.2-54.2); Mean Corpuscular HGB Conc 33.1 GM/DL (32-36); Mean Corpuscular Volume 98.6 FL (87-102); Mean Platelet Volume 10.3 FL (9.6-12.0); Monocytes % 3.4 % (1.7-12.7); Neutrophils % 87.3 % (38.7-73.9); Platelet Count 179 T/CUMM (130-400); Red Blood Count 3.55 MC/CUMM (3.8-5.5); Red Cell Distribution Width 13.4 % (9.3-17.3); White Blood Count 8.9 T/CUMM (4-12)
[2021-12-30 06:15] LABS: Albumin 2.4 G/DL (3.4-5.0); Bilirubin,Total 0.5 MG/DL (0.20-1.00); Calcium 8.6 MG/DL (8.5-10.1); Osmolality,Calculated 279.7 MOS/KG (273-304); Potassium 3.9 MMOL/L (3.5-5.1); Total Protein 6.2 G/DL (6.4-8.2)
[2021-12-30] MEDS: CETIRIZINE 10 MG TABLET PO SCH (10:43)
[2021-12-30] MEDS: RIVAROXABAN 20 MG TABLET PO SCH (10:43)
[2021-12-30] MEDS: SACUBITRIL/VALSARTAN 49-51 MG TABLET PO SCH (10:43)
[2021-12-30] MEDS: ZINC SULFATE 220 MG CAPSULE PO SCH (10:44)
[2021-12-30] MEDS: carvediloL 12.5 MG TABLET PO SCH (10:44)
[2021-12-30] MEDS: FERROUS SULFATE 325 MG TABLET PO SCH (10:44)
[2021-12-30] MEDS: FUROSEMIDE 40 MG TABLET PO SCH (10:44)
[2021-12-30] MEDS: DOCUSATE SODIUM 100 MG CAPSULE PO SCH (10:45)
[2021-12-30] MEDS: PANTOPRAZOLE 40 MG TABLET PO SCH (10:45)
[2021-12-30] MEDS: DEXAMETHASONE 10 MG/1 ML VIAL IV SCH (10:45)
[2021-12-30] MEDS: cefTRIAXone 1,000 MG in SODIUM CHLORIDE 0.9% 100 ML IV SCH (10:45)
[2021-12-30] MEDS: FINASTERIDE 5 MG TABLET PO SCH (10:46)
[2021-12-30] MEDS: AZITHROMYCIN INJ 500 MG in SODIUM CHLORIDE 0.9% 250 ML IV SCH (10:46)
[2021-12-30 12:57] VITALS: BP 129/79
== END 2021-12-30 16:05 | disposition home or self-care (01) | DRG 177 ==
LOC: N.ED 19:33 → SUATTDRO 12-28 13:47 → N.EDINP 12-28 13:47 → N.3E 12-28 23:59
PROVIDERS: ADMIT Internal Medicine; ATTEND Internal Medicine